=== PATIENT | female | born 1995 ===

== ENCOUNTER 2019-10-28 19:30 | Inpatient (IN) | payer OTHER ==
[2019-10-28] MEDS ORDERED: hydrALAZINE 20 MG/ML VIAL SLOW IVP PRN (21:50)
[2019-10-28] MEDS ORDERED: Ondansetron PF 4 MG/2 ML Vial IVP PRN (21:50)
[2019-10-28] MEDS ORDERED: NS / Oxytocin 40 units/1000ml 1,000 ML IV PRN (21:50)
[2019-10-28] MEDS ORDERED: Methylergonovine 0.2 MG/ML VIAL IM PRN (21:50)
[2019-10-28] MEDS ORDERED: Lidocaine 1% (PF) 30 ML VIAL SC PRN (21:50)
[2019-10-28] MEDS ORDERED: NS w/ Oxytocin 10 units 500 ML IV SCH (21:50)
[2019-10-28] MEDS ORDERED: HYDROcodone/Acetaminophen 5/325 mg Tablet PO PRN ×2 (21:50)
[2019-10-28] MEDS ORDERED: Ibuprofen 800 MG TAB PO PRN (21:50)
[2019-10-28] MEDS ORDERED: Promethazine HCl 25 MG/ML VIAL IM PRN (21:50)
[2019-10-28] MEDS ORDERED: Misoprostol 200 MCG TAB PR PRN (21:50)
[2019-10-28 22:05] VITALS: BMI 27.3
[2019-10-28] MEDS: Lactated Ringer's 1,000 ML IV SCH (22:32)
[2019-10-28] MEDS: Misoprostol 100 MCG TAB VAG SCH (22:44)
[2019-10-28 23:24] LABS: Hemoglobin 11.3 g/dL (12.0-16.0); Mean Corpuscular Hemoglobin 32.4 pg (27.0-31.0); Mean Corpuscular Volume 92.6 fL (78.0-98.0); Mean Platelet Volume 9.7 fL (7.4-10.4); Platelet Count 155 thou/uL (130-400); RBC Distribution Width 12.1 % (11.5-14.5); Red Blood Cell (RBC) Count 3.48 mill/uL (4.20-5.40); White Blood Cell (WBC) Count 8.8 thou/uL (4.8-10.8)
[2019-10-29 00:02] LABS: HBSAg Index 0.13 S/CO (0-0.99); Hep B Surf Ag Non-Reactive S/CO (NonReactive); Syphilis Antibody Nonreactive (Nonreactive); Syphilis Antibody Index 0.02 S/CO (<1.00 Non-Reactive)
[2019-10-29] MEDS: Misoprostol 100 MCG TAB VAG SCH ×5 (03:14→17:03)
[2019-10-29] MEDS: Lactated Ringer's 1,000 ML IV SCH ×4 (03:15→18:30)
[2019-10-29] MEDS ORDERED: Fentanyl 4 mcg/Bup 0.1% Cadd 100 ML ONE ×2 (09:44→17:36)
[2019-10-29] MEDS ORDERED: Penicillin G Potassium 5 MILL.UNITS VIAL ONE (09:59)
[2019-10-29] MEDS ORDERED: Communication Order-Pharmacy FS SCH ×2 (10:45→23:15)
[2019-10-29] MEDS ORDERED: Acetaminophen 325 MG TAB PO PRN (10:45)
[2019-10-29] MEDS ORDERED: Lactated Ringer's 500 ML IV PRN (10:45)
[2019-10-29] MEDS ORDERED: Ondansetron PF 4 MG/2 ML Vial IVP PRN ×2 (10:45→23:07)
[2019-10-29] MEDS ORDERED: diphenhydrAMINE 50 MG/ML VIAL IVP PRN ×2 (10:45→23:07)
[2019-10-29] MEDS ORDERED: EPHEDRINE 25 MG/5 ML SYRINGE SLOW IVP PRN (10:45)
[2019-10-29] MEDS ORDERED: Promethazine HCl 25 MG/ML VIAL IM PRN ×2 (10:45→23:07)
[2019-10-29] MEDS ORDERED: Fentanyl 4 mcg/Bupivacaine 0.1% Cassette 100 ML EPIDURAL SCH (10:45)
[2019-10-29] MEDS ORDERED: Naloxone HCl 0.4 mg/ml Vial IVP PRN ×4 (10:45→23:07)
[2019-10-29] MEDS ORDERED: Terbutaline Sulfate 1 MG/ML VIAL ONE (12:15)
--- NOTE | 2019-10-29 15:40 | PDOC.LDHP ---
Labor and Delivery H&P Chief complaint: scheduled induction HPI: Patient arrived for scheduled IOL last night. She had not been feeling any contracionts prior. Denies LOF, VB. Her baby is moving normally. Current gestational age (weeks): 40 Due date: 10/25/19 Grav: 1 Para: 0 Current complications: none Abnormal US findings: No Current medications: pre-jarrell vitamins Previous surgical history: none Allergies/Adverse Reactions: Allergies Allergy/AdvReac Type Severity Reaction Status Date / Time No Known Allergies Allergy Verified 10/28/19 21:52 Social history: none - Physical Exam Vital signs reviewed and normal: yes General: resting Lungs: nonlabored breathing Abdomen: gravid FHT: category 1 - Vaginal Exam cm dilated: 1 Effacement: 50% Station: -2 - OB Labs Blood type: O RH: positive Antibody Screen: negative HIV: negative RPR: negative HEPSAg: negative 1 hour GCT: negative GBS: negative Urine drug screen: negative Rubella: immune Additional Labs: CT+ 03/2019 CT neg SHARDA in 04/2019 - Assessment L&D Assessment: elective induction at term - Plan Plan: cervical ripening, anesthesia consult for pain management
[2019-10-29] MEDS ORDERED: Bicitra 30 ML UDCUP PO SCH (21:45)
--- NOTE | 2019-10-29 21:54 | PDOC.LDPN ---
Labor & Delivery Progress Note - Subjective Subjective: painful contractions - Objective Vital signs reviewed and normal: yes General: breathing through contractions SVE: 10 Effacement: 100% Station: 1+ FHT: category 2 - Assessment (1) Primiparous Code(s): Z34.00 - ENCNTR FOR SUPRVSN OF NORMAL FIRST , UNSP TRIMESTER Current Visit: Yes Status: Acute (2) Arrest of descent, delivered, current hospitalization Code(s): O62.1 - SECONDARY UTERINE INERTIA Current Visit: Yes Status: Acute -: Arrest of decent after 2.5 hr of pushing. Patient agrees to PCS. Azithromycin and ancef pre OP
[2019-10-29] MEDS ORDERED: CEFAZOLIN 2 GM in Premix Bag 1 BAG IVPB SCH (22:00)
[2019-10-29] MEDS ORDERED: Azithromycin 500 MG in Sodium Chloride 0.9% 250 ML 250 ML IVPB SCH (22:00)
[2019-10-29] MEDS ORDERED: Dexamethasone 4 mg/ml Vial ONE (22:09)
[2019-10-29] MEDS ORDERED: Midazolam HCl 2 mg/2 ml Vial ONE (22:09)
[2019-10-29] MEDS ORDERED: Ketorolac Tromethamine 30 MG/ML VIAL ONE (22:09)
[2019-10-29] MEDS ORDERED: PHENYLEPHRINE-NS 100 MCG/ML 10 ML SYRINGE ONE (22:09)
[2019-10-29] MEDS ORDERED: Ketamine 50 MG/ML (10ML VIAL) ONE (22:09)
[2019-10-29] MEDS ORDERED: Oxytocin 10 UNITS/ML VIAL ONE (22:09)
[2019-10-29] MEDS ORDERED: Ondansetron PF 4 MG/2 ML Vial ONE (22:09)
[2019-10-29] MEDS ORDERED: Lidocaine 2% 10 ML INJ ONE (22:13)
[2019-10-29] MEDS ORDERED: MORPHINE 5 MG/10 ML PF VIAL ONE (22:13)
[2019-10-29] MEDS ORDERED: diphenhydrAMINE 50 MG/ML VIAL ONE (22:23)
[2019-10-29] MEDS ORDERED: Meperidine HCl/PF 25 MG/ML VIAL ONE (22:43)
[2019-10-29 22:54] LABS: Actual Bicarbonate (HCO3a) 21.3 mEq/L (22-28)
[2019-10-29 22:58] LABS: Actual Bicarbonate (HCO3v) 20 mEq/L (22-28); Base Excess -5.1 mEq/L (-2.0 to +3.0); pH (Cord, venous) 7.34 (7.32-7.43)
[2019-10-29] MEDS ORDERED: L&D-Morphine 4 MG/ML VIAL SLOW IVP PRN (23:07)
[2019-10-29] MEDS ORDERED: Ondansetron HCl/PF 4 MG/2 ML Vial IVP PRN (23:07)
[2019-10-29] MEDS ORDERED: HYDROmorphone 2 MG/ML VIAL SLOW IVP PRN (23:07)
[2019-10-29] MEDS ORDERED: Meperidine HCl/PF 25 MG/ML VIAL SLOW IVP PRN (23:07)
[2019-10-29] MEDS ORDERED: Promethazine HCl 25 MG SUPP PR PRN (23:07)
[2019-10-29] MEDS ORDERED: Naloxone HCl 0.4 mg/ml Vial IV PRN (23:07)
[2019-10-30] MEDS ORDERED: HYDROcodone/Acetaminophen 5/325 mg Tablet PO PRN ×2 (01:28)
[2019-10-30] MEDS ORDERED: Acetaminophen 325 MG TAB PO PRN (01:28)
[2019-10-30] MEDS ORDERED: Ondansetron PF 4 MG/2 ML Vial IVP PRN (01:28)
[2019-10-30] MEDS ORDERED: Misoprostol 200 MCG TAB PR PRN (01:28)
[2019-10-30] MEDS ORDERED: diphenhydrAMINE 25 MG CAP PO PRN (01:28)
[2019-10-30] MEDS ORDERED: NS / Oxytocin 40 units/1000ml 1,000 ML IV SCH (01:28)
[2019-10-30] MEDS ORDERED: Methylergonovine 0.2 MG/ML VIAL IM PRN (01:28)
[2019-10-30] MEDS ORDERED: Bisacodyl 10 MG SUPP PR PRN (01:28)
[2019-10-30] MEDS ORDERED: Simethicone Chewable 80 MG TAB PO PRN (01:28)
[2019-10-30] MEDS ORDERED: hydrALAZINE 20 MG/ML VIAL SLOW IVP PRN (01:28)
[2019-10-30] MEDS: Misoprostol 100 MCG TAB VAG SCH (02:23)
[2019-10-30] MEDS: Ibuprofen 800 MG TAB PO SCH ×3 (04:37→21:13)
[2019-10-30] MEDS: Lactated Ringer's 1,000 ML IV SCH ×3 (04:38→18:43)
[2019-10-30] MEDS: Ketorolac Tromethamine 30 MG/ML VIAL IVP SCH ×5 (05:11→19:21)
[2019-10-30 06:44] LABS: Hemoglobin 9.5 g/dL (12.0-16.0); Mean Corpuscular HGB CONC 34.6 g/dL (32.0-36.0); Mean Corpuscular Hemoglobin 32.7 pg (27.0-31.0); Mean Corpuscular Volume 94.6 fL (78.0-98.0); Mean Platelet Volume 8.9 fL (7.4-10.4); Platelet Count 102 thou/uL (130-400); RBC Distribution Width 12.1 % (11.5-14.5); Red Blood Cell (RBC) Count 2.89 mill/uL (4.20-5.40); White Blood Cell (WBC) Count 15.9 thou/uL (4.8-10.8)
--- NOTE | 2019-10-30 07:27 | OP ---
DATE OF PROCEDURE: 10/29/2019 PREOPERATIVE DIAGNOSES: 1. Intrauterine at 40 weeks and 4 days. 2. Arrest of descent. 3. Straight OP presentation. POSTOPERATIVE DIAGNOSES: 1. Intrauterine at 40 weeks and 4 days. 2. Arrest of descent. 3. Straight OP presentation. PROCEDURE PERFORMED: Primary lower transverse section. [employer]: Ms. Britt Jimenez, certified nurse cto. ANESTHESIA: Epidural. COUNTS: Correct. CONDITION: Stable. COMPLICATIONS: None. QUANTITATIVE BLOOD LOSS: 640 mL. FINDINGS: Male was born on 10/29/2018 at 2234 hours at 40 weeks and 4 days' gestation in straight OP presentation. Apgars were 8 and 9. weight was 3904 g. DESCRIPTION OF PROCEDURE: Ms. Anna is a 24-year-old, G1, now P1 female, who after pushing for 2.5 hours was arrested at complete, complete, +1 station and straight OP presentation. Due to maternal fatigue and request, pushing was stopped at this time and we proceeded with . The patient was taken to the operating room, where she once was confirmed having good anesthesia, was placed in dorsal supine position with a leftward tilt. She was prepared and draped in normal sterile fashion. Anesthesia was deemed adequate, and a skin incision was made in Pfannenstiel style and carried down to the level of the fascia. Fascia was incised and extended laterally with Carroll scissors. Both superior and inferior aspects of the rectal fascia were then elevated, and the underlying rectus muscles were dissected off bluntly and sharply. The peritoneal cavity was then entered into bluntly, and the defect was extended bluntly. An Romeo O retractor was then inserted, and adequate exposure of the lower uterine segment was made. A bladder flap was created. Hysterotomy was made in a transverse fashion in the lower uterine segment. head was noted to be straight OP with significant molding. With some difficulty, the head was delivered to the surgical field. Delivery necessitated the removal of the Romeo O retractor to accommodate the baby's head. Once the baby was delivered to the sterile field, the cord was clamped and cut and the was handed off to the waiting attendants. Attention was placed back to the surgical field. The Romeo O was then replaced into the abdomen re-exposing the uterus and the hysterotomy. The edges of the hysterotomy were then identified and grasped with ring forceps. The hysterotomy was closed with #1 Monocryl in a running locked fashion, followed by imbricating layer of the same suture. Good hemostasis was noted. Irrigation was performed, and then the peritoneum was closed with 2-0 chromic in a running fashion. The fascia was then closed with 0 Vicryl in a running fashion. The subcutaneous fat was closed with 2-0 plain gut in a running fashion in two layers, and the skin was closed with 4-0 Monocryl in a running fashion. The patient tolerated the procedure well and was taken to recovery room in stable condition. Job ID: [id number]
[2019-10-30] MEDS: Docusate Calcium (SURFAK) 240 MG CAP PO SCH ×2 (08:59→21:14)
[2019-10-30] MEDS: Prenatal Vitamin 1 TAB PO SCH (08:59)
[2019-10-30] MEDS: Ferrous Sulfate 325 MG TAB PO SCH ×2 (08:59→17:39)
[2019-10-30] MEDS ORDERED: Adacel (T-DAP) 0.5 ML SYRINGE IM ONE (09:00)
[2019-10-31] MEDS: Lactated Ringer's 1,000 ML IV SCH ×3 (03:43→17:06)
[2019-10-31] MEDS: Ibuprofen 800 MG TAB PO SCH ×3 (05:02→21:47)
[2019-10-31] MEDS: Ferrous Sulfate 325 MG TAB PO SCH ×2 (09:17→17:07)
[2019-10-31] MEDS: Prenatal Vitamin 1 TAB PO SCH (09:17)
[2019-10-31] MEDS: Docusate Calcium (SURFAK) 240 MG CAP PO SCH ×2 (09:17→21:48)
[2019-11-01] MEDS: Lactated Ringer's 1,000 ML IV SCH ×2 (02:38→09:44)
[2019-11-01] MEDS: Ibuprofen 800 MG TAB PO SCH (05:52)
[2019-11-01 07:47] VITALS: BP 130/76; TEMP 98.4
[2019-11-01] MEDS: Prenatal Vitamin 1 TAB PO SCH (09:43)
[2019-11-01] MEDS: Ferrous Sulfate 325 MG TAB PO SCH (09:43)
[2019-11-01] MEDS: Docusate Calcium (SURFAK) 240 MG CAP PO SCH (09:43)
--- NOTE | 2019-11-01 11:55 | PDOC.PP ---
Post Progress Note Post Day #: 3 Subjective: Pt is doing well. ready to go home. Pain is well controlled. PO intake tolerated: yes Flatus: yes Ambulation: yes Vital Signs (12 hours) Temp Pulse Resp BP Pulse Ox 11/01/19 07:46 98.4 F 92 20 130/76 95 11/01/19 04:50 80 18 129/84 96 Weight Weight 180 lb - Physical Examination General: NAD Respiratory: non-labored breathing Abdominal: no distention, appropriately TTP Skin: CS incision dry & intact Neurological: no gross focal deficits Psychiatric: A&Ox3, normal affect Result Diagrams: 10/30/19 06:31 Additional Labs: Post Labs Blood Type O POSITIVE 10/29/19 00:45 Hep Bs Antigen Non-Reactive S/CO (NonReactive) 10/28/19 22:40 (1) Primiparous Code(s): Z34.00 - ENCNTR FOR SUPRVSN OF NORMAL FIRST , UNSP TRIMESTER Status: Acute (2) Arrest of descent, delivered, current hospitalization Code(s): O62.1 - SECONDARY UTERINE INERTIA Status: Acute (3) delivery delivered Code(s): O82 - ENCOUNTER FOR DELIVERY WITHOUT INDICATION Status: Acute - Assessment/Plan A: G1 now p0 s/p LTCS with NML day 3 exam. P: discharge home. 10 day post op follow up in office. 6 week post exam. medications sent from office.
--- NOTE | 2019-11-01 11:57 | PDOC.PP ---
Post Progress Note Post Day #: 1 Subjective: Pt is up in chair. has not used restroom yet because she still has the nettles in. pain well controlled. PO intake tolerated: yes Flatus: no Ambulation: yes Vital Signs (12 hours) Temp Pulse Resp BP Pulse Ox 11/01/19 07:46 98.4 F 92 20 130/76 95 11/01/19 04:50 80 18 129/84 96 Weight Weight 180 lb - Physical Examination General: NAD Respiratory: non-labored breathing Abdominal: lochia (minimal), no distention, appropriately TTP Extremities: negative homans (B) Skin: CS incision dry & intact Neurological: no gross focal deficits Psychiatric: A&Ox3, normal affect Result Diagrams: 10/30/19 06:31 Additional Labs: Post Labs Blood Type O POSITIVE 10/29/19 00:45 Hep Bs Antigen Non-Reactive S/CO (NonReactive) 10/28/19 22:40 (1) Primiparous Code(s): Z34.00 - ENCNTR FOR SUPRVSN OF NORMAL FIRST , UNSP TRIMESTER Status: Acute (2) Arrest of descent, delivered, current hospitalization Code(s): O62.1 - SECONDARY UTERINE INERTIA Status: Acute (3) delivery delivered Code(s): O82 - ENCOUNTER FOR DELIVERY WITHOUT INDICATION Status: Acute - Assessment/Plan A: g1 now p1 NML ppd 1 exam P: dc nettles ambulate x 3 in halls. routine care
--- NOTE | 2019-11-01 11:59 | PDOC.PP ---
Post Progress Note Post Day #: 2 Subjective: Patient is well. has started to pass gas. is not going well. PO intake tolerated: yes Flatus: yes Ambulation: yes Vital Signs (12 hours) Temp Pulse Resp BP Pulse Ox 11/01/19 07:46 98.4 F 92 20 130/76 95 11/01/19 04:50 80 18 129/84 96 Weight Weight 180 lb - Physical Examination General: NAD Respiratory: non-labored breathing Abdominal: no distention, appropriately TTP Skin: CS incision dry & intact, no rash Neurological: no gross focal deficits Psychiatric: A&Ox3, normal affect Result Diagrams: 10/30/19 06:31 Additional Labs: Post Labs Blood Type O POSITIVE 10/29/19 00:45 Hep Bs Antigen Non-Reactive S/CO (NonReactive) 10/28/19 22:40 (1) Primiparous Code(s): Z34.00 - ENCNTR FOR SUPRVSN OF NORMAL FIRST , UNSP TRIMESTER Status: Acute (2) Arrest of descent, delivered, current hospitalization Code(s): O62.1 - SECONDARY UTERINE INERTIA Status: Acute (3) delivery delivered Code(s): O82 - ENCOUNTER FOR DELIVERY WITHOUT INDICATION Status: Acute - Assessment/Plan A: s/p LTCS with NML POD 2 exam P: discharge home tomorrow.
== END 2019-11-01 13:00 | disposition home or self-care (01) | DRG 788 ==
LOC: L&D 21:09 → 3SW 10-30 04:18
PROVIDERS: ADMIT Obstetrics & Gynecology; ATTEND Obstetrics & Gynecology
PROC: 10D00Z1 Extraction of Products of Conception, Low, Open Approach (ICD-10-PCS; principal; 2019-10-30)
PROC: 3E0P7VZ Introduction of Hormone into Female Reproductive, Via Natural or Artificial Opening (ICD-10-PCS; 2019-10-30)
DX: O48.0 Post-term pregnancy (principal); Z3A.40 40 weeks gestation of pregnancy; O32.4XX0 Maternal care for high head at term, not applicable or unspecified; O61.0 Failed medical induction of labor; Z37.0 Single live birth
CPT/HCPCS: 36415; 36416; 36600; 51702; 82805; 85027; 86780; 86850; 86900; 86901; 87340; 87635; J0690; J1100; J1200; J1885; J2001; J2175; J2250; J2274; J2405; J2540; J2590; J3105; U0003